=== PATIENT | female | born 1950 | race Caucasian/White ===

== ENCOUNTER 2016-11-14 11:57 | Inpatient (IN) | payer MEDICAID, MEDICARE ==
[~2016-11-14] VITALS: Ht 170.2 cm; Wt 102.4 kg
[2016-11-14] VITALS (7 sets, daily range): BP systolic 97–141; BP diastolic 56–70; PULSE 85–111; RESP 16–20; O2SAT 93–98
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
[2016-11-14 14:04] LABS: BASOPHILS % (AUTO) 0.1 % (0-3); EOSINOPHILS % (AUTO) 2.2 % (0-5); MONOCYTES % (AUTO) 11.2 % (4-12); Mean Corpuscular Hemoglobin 27.4 pg (27.0-35.0); Mean Corpuscular Volume 84.5 fL (81-100); NEUTROPHILS % (AUTO) 59.9 % (40-74); Platelet Count 343 bil/L (150-400)
[2016-11-14 14:31] LABS: TROPONIN T < 0.010 ug/L (0.0-0.011)
--- NOTE | 2016-11-14 14:34 | DRSVH ---
PROCEDURE: CT BRAIN WITHOUT CONTRAST ([id number]) INDICATIONS: syncope vs seizure TECHNIQUE: Noncontrast 4.5 mm thick angled axial sections acquired from the foramen magnum to the vertex, with c oronal reformats. COMPARISON: None. FINDINGS: Image quality: Excellent. CSF spaces: Basal cisterns are patent. No extra-axial fluid collections. The ventricles are symmet zuhair in size and shape. Brain: No intracranial bleeds or masses. There is cerebral volume loss for age, with resultant vent ricular and sulcal prominence. There are periventricular and deep white matter chronic small vessel ischemic changes. There is intracranial internal carotid artery atherosclerosis. Skull and face: Calvarium and visualized facial bones appear intact, without suspicious lesions. Sinuses: Visualized sinuses demonstrate postsurgical changes. IMPRESSION: 1. No acute intracranial process. Dictated by: Teressa Parra M.D. on 11/14/2016 at 14:24 Approved by: Teressa Parra M.D. on 11/14/2016 at 14:32
[2016-11-14 14:37] LABS: Magnesium 1.9 mg/dL (1.6-2.6)
[2016-11-14 15:27] LABS: APPEARANCE,URINE HAZY (CLEAR,HAZY); COLOR,URINE YELLOW (YELLOW); PH,URINE 5.5 (5.0-8.0)
[2016-11-14 15:29] LABS: OCCULT BLOOD,URINE NEGATIVE (NEGATIVE); UROBILINOGEN,URINE NORMAL (NORMAL)
[2016-11-14] MEDS ORDERED: 0.9% Sodium Chloride 1,000 ML IV ONE (16:05)
[2016-11-14] MEDS: Lactated Ringer's 1,000 ML IV SCH (17:24)
[2016-11-14] MEDS ORDERED: TIZA4TAB4 PO (17:26)
[2016-11-14] MEDS ORDERED: BUPR100T15 PO (17:26)
[2016-11-14] MEDS ORDERED: ONDA4TAB12 PO (17:26)
[2016-11-14] MEDS ORDERED: DOXE10CA PO (17:26)
[2016-11-14] MEDS ORDERED: MS15TCR PO (17:26)
[2016-11-14] MEDS ORDERED: HYDR-3605 PO (17:26)
[2016-11-14] MEDS ORDERED: SIMV10TA4 PO (17:26)
[2016-11-14] MEDS ORDERED: HYDR28CR15 TP (17:26)
[2016-11-14] MEDS ORDERED: VENL150C98 PO (17:26)
[2016-11-14] MEDS ORDERED: OXYB10TA PO (17:29)
[2016-11-14] MEDS ORDERED: LIDO15CR9 TP (17:29)
[2016-11-14] MEDS ORDERED: LEVO50TA6 PO (17:29)
[2016-11-14] MEDS ORDERED: CARV3.122 PO (17:29)
[2016-11-14] MEDS ORDERED: NYST15PO5 TP (17:29)
[2016-11-14] MEDS ORDERED: Polyethylene Glycol (PEG) 17 Gm Powder PO PRN (17:30)
[2016-11-14] MEDS ORDERED: Alum-Mag Hydrox-Simeth 30 mL Suspension PO PRN (17:30)
[2016-11-14] MEDS ORDERED: Ondansetron 2 mg/mL 2 mL Inj IVPUSH PRN (17:30)
[2016-11-14] MEDS ORDERED: CHOL200025 PO (17:32)
[2016-11-14] MEDS ORDERED: RANI150T11 PO (17:32)
[2016-11-14] MEDS ORDERED: CYAN10008 PO (17:32)
[2016-11-14] MEDS ORDERED: LISI-571 PO (17:32)
[2016-11-14] MEDS ORDERED: METF500T4 PO (17:32)
[2016-11-14] MEDS ORDERED: KETO120S3 TP (17:32)
[2016-11-14] MEDS ORDERED: ALBU8.5H2 INHALATION (17:33)
[2016-11-14 17:57] LABS: APPEARANCE,URINE CLEAR (CLEAR,HAZY); COLOR,URINE YELLOW (YELLOW); OCCULT BLOOD,URINE NEGATIVE (NEGATIVE); PH,URINE 5.5 (5.0-8.0); UROBILINOGEN,URINE NORMAL (NORMAL)
--- NOTE | 2016-11-14 18:22 | NUR ---
Admit Patient arrived to room 239-1 via wheelchair from ED. GALEN SEPULVEDA; Patient reports back pain 01/14. Patient oriented to room and instructed to press call light for all needs. Med rec completed by admit nurse. Addendum: 11/14/16 at 1927 by RANDY BAZZI RN pt arrived at [id number]
--- NOTE | 2016-11-14 19:20 | DRSVH ---
PROCEDURE: US BILATERAL DUPLEX DOPPLER IMAGING OF THE CAROTIDS ([id number]) INDICATIONS: Recurrent syncopal TECHNIQUE: Color and pulse Doppler interrogation was performed of both carotid systems, with image documentation and velocity measurements. COMPARISON: None. FINDINGS: Stenosis calculations are based on SRU (Society of Radiologists in Ultrasound) criteria. Right side: Brachial blood pressure: 132/56 mm Hg. Common carotid artery peak systolic velocity: 104 cm/sec. Internal carotid artery peak systolic velocity: 151 cm/sec. Internal carotid artery end diastolic velocity: 36 cm/sec. External carotid artery peak systolic velocity: 56 cm/sec. ICA/CCA peak systolic ratio: 1.45. Arteaga scale imaging description: Shadowing atheromatous calcifications are present at the bifurcation. Percent internal carotid artery stenosis: 50-69% stenosis. Vertebral artery: Flow direction is antegrade. Left side: Brachial blood pressure: Not obtained. Common carotid artery peak systolic velocity: 155 cm/sec. Internal carotid artery peak systolic velocity: 123 cm/sec. Internal carotid artery end diastolic velocity: 18 cm/sec. External carotid artery peak systolic velocity: 87 cm/sec. ICA/CCA peak systolic ratio: 0.8. Arteaga scale imaging description: Scattered atheromatous plaque is present at the carotid bifurcation. Percent internal carotid artery stenosis: Less than 50% stenosis. Vertebral artery: Flow direction is antegrade. IMPRESSION: 50-59% stenosis at the right internal carotid artery and less than 50% stenosis of the left internal carotid artery. Dictated by: Gerda Calvin M.D. on 11/14/2016 at 19:17 Approved by: Gerda Calvin M.D. on 11/14/2016 at 19:18
[2016-11-14] MEDS: 0.9% NaCl + KCl 20 mEq/L 1,000 ML IV SCH (19:21)
[2016-11-14] MEDS ORDERED: Albuterol 2.5 mg/3 mL Inhalation Solution NEB PRN (20:00)
[2016-11-14] MEDS: LIDOCAINE 4% CREAM TOPICAL SCH (20:30)
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
--- NOTE | 2016-11-14 22:00 | NUR ---
Hypotension/Drowsy BP @90/54 and patient having trouble staying awake here to assess aware wants to recheck BP and go ahead with cardiac and morphine as elise Addendum: 11/15/16 at 0638 by EDSON SOLOMON RN BP improved still falls asleep sitting up and impulsive and forgetful BA in use
[2016-11-14] MEDS: hydrOXYzine Pamoate 25 mg Capsule PO SCH (22:21)
[2016-11-14] MEDS: Nystatin 100,000 Unit/Gm 15 Gm Powder TOPICAL SCH (22:22)
[2016-11-14] MEDS: Morphine ER 15 mg (MS Contin) Tablet PO SCH (22:22)
[2016-11-15] VITALS (7 sets, daily range): BP systolic 108–154; BP diastolic 59–78; PULSE 81–94; RESP 16–19; O2SAT 93–97
[2016-11-15] MEDS: Lactated Ringer's 1,000 ML IV SCH ×3 (03:24→23:24)
[2016-11-15] MEDS: 0.9% NaCl + KCl 20 mEq/L 1,000 ML IV SCH ×2 (06:31→17:22)
[2016-11-15 07:00] LABS: BASOPHILS % (AUTO) 0.4 % (0-3); MONOCYTES % (AUTO) 11.5 % (4-12); Mean Corpuscular Hemoglobin 26.7 pg (27.0-35.0); Mean Corpuscular Volume 86.1 fL (81-100); NEUTROPHILS % (AUTO) 42.5 % (40-74); Platelet Count 307 bil/L (150-400)
[2016-11-15] MEDS: LIDOCAINE 4% CREAM TOPICAL SCH ×3 (08:30→20:20)
[2016-11-15] MEDS: Insulin Human REGular 300 Unit/3 mL Inj SUBQ SCH ×4 (10:01→22:00)
[2016-11-15] MEDS: Venlafaxine XR 75 mg ER24 Capsule PO SCH (10:04)
[2016-11-15] MEDS: Morphine ER 15 mg (MS Contin) Tablet PO SCH ×2 (10:05→20:16)
[2016-11-15] MEDS: Nystatin 100,000 Unit/Gm 15 Gm Powder TOPICAL SCH ×2 (10:06→20:17)
[2016-11-15] MEDS: hydrOXYzine Pamoate 25 mg Capsule PO SCH ×3 (10:10→20:13)
--- NOTE | 2016-11-15 10:12 | DRSVH ---
PROCEDURE: MRI STROKE PROTOCOL ([id number]) Pre- and post-contrast brain MRI, non-contrast brain MR angiogram, pre- and postcontrast neck MR machelle ogram INDICATIONS: Recurrent syncope TECHNIQUE: Brain: Noncontrast axial T1 spin echo, axial T2 fast spin echo, sagittal and axial FLAIR, coronal T2 fast spin echo, axial gradient echo, axial diffusion and ADC through the brain. After the administr ation of contrast, axial 3D VIBE of the cranial vasculature and brain. Brain MRA: Non-contrast 3-D time of flight MR angiogram, with multiple wdowgby-tbkeqzolk-hssizdvpfg (MIP) reformats performed. Neck MRA: Axial and sagittal TruFISP through the neck. Coronal dynamic MR angiogram during administ ration of contrast in the arterial and venous phases, with 3-dimenstional kisniqs-higdsownp-xcsaxnwgm n (MIP) reformats constructed from subtraction images. COMPARISON: None. FINDINGS: Image quality: Excellent. BRAIN: CSF spaces: Ventricles are normal in size and shape. Basal cisterns are patent. No extra-axial flu id collections. Brain: No intracranial bleeds or mass effects. Arteaga-white matter interface is normal. Diffusion we ighted images show no acute ischemic insults. Brainstem appears normal. Normal intravascular flow v oids are present. No abnormal intracranial enhancement. Skull and face: Calvarial marrow signal is normal. Orbits appear normal. Sinuses: Sinuses and mastoids are clear. BRAIN MR ANGIOGRAM: Anterior circulation: Intracranial internal carotid arteries are overall normal in size and enhancem ent. Focal, moderate grade stenoses are present within the cavernous portions of the bilateral internal sales al carotid arteries. The flow within the paired anterior cerebral arteries is normal and symmetric. The flow within the middle cerebral arteries is normal and symmetric. The anterior communicating art barak is seen. No stenoses, occlusions, or aneurysms. Posterior circulation: The visualized portions of the vertebral arteries demonstrate normal caliber, and join to form a normal appearing basilar artery. The flow within the posterior cerebral arteries is normal and symmetric. No stenoses, occlusions, or aneurysms. NECK MR ANGIOGRAM: Carotids: Great vessels demonstrate a conventional anatomy as they arise from the aortic arch. The origins of the common carotid arteries appear patent. The calibers and courses of both common caroti d arteries are normal. The bifurcation regions appear normal bilaterally. The internal carotid abran charlie demonstrate normal course and caliber. Posterior circulation: The origins of the vertebral arteries appear patent. More superior portions of both vertebral arteries demonstrate normal course and caliber, and join to form a normal appearing basilar artery. Miscellaneous: Subclavian arteries appear patent. Pre-contrast images through the neck show no soft tissue abnormalities. IMPRESSION: BRAIN MRI: 1. No acute intracranial findings. Specifically, no acute or subacute infarct. BRAIN MR ANGIOGRAM: 1. Focal moderate stenosis within the cavernous portions of the bilateral internal carotid arteries. No stenosis, occlusion, or aneurysm. NECK MR ANGIOGRAM: 1. No stenosis, occlusion, or aneurysm. The estimate of stenosis included in the report of the imaging study was calculated using the NASCET method Dictated by: Gerda Calvin M.D. on 11/15/2016 at 9:59 Approved by: Gerda Calvin M.D. on 11/15/2016 at 10:10
--- NOTE | 2016-11-15 11:27 | NUR ---
Social Work: Multidisciplinary Rounds Pt discussed in rounds. PT has been ordered and will hopefully see pt this afternoon. TRACTOR OPERATOR will complete Initial Assessment after PT this afternoon. RN states pt not likely to d/c today. LUIS Marie
--- NOTE | 2016-11-15 12:37 | NUR ---
Case management- DICKSON explained and signed/ timed 1230pm by patient. Copy given to patient. Original placed in chart. Kenyetta LAMAR/ CUBA
--- NOTE | 2016-11-15 16:09 | NUR ---
Social Work: Initial Assessment Attempt / Brief Note Data: Pt is a 66 y/o female admitted for MYAH, syncope. Pt's PCP is Dr Green, pt's insurance is [employer]. EMR reviewed, readmit score not listed. DEPLOYMENT ENGINEER attempted to meet with pt at bedside, pt working with medical staff. PT has not yet seen pt. DEPLOYMENT ENGINEER will continue to follow and see pt on a different day. Assessment: Pt who is independent at baseline. Plan: PT has not yet seen pt. DEPLOYMENT ENGINEER will continue to follow and see pt on a different day. LUIS Marie
--- NOTE | 2016-11-15 18:39 | NUR ---
Kandace had an EEG, MRI, and ECHO today. PT consulted. Front wheeled walker recommended.
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
--- NOTE | 2016-11-15 23:41 | NUR ---
Ambulation Pt ambulating to bathroom SBA with FWW with steady gait. Closely watching due to report from day shift of unsteady gait. Reports of 0/10 pain if resting in bed, pain in low back with movement. Matthew alarm on bed for safety and confusion. Call light within reach. Frequent rounding continues.
[2016-11-16] VITALS (8 sets, daily range): BP systolic 105–129; BP diastolic 66–74; PULSE 72–98; RESP 16–18; O2SAT 94–97
[2016-11-16] MEDS: 0.9% NaCl + KCl 20 mEq/L 1,000 ML IV SCH (02:40)
[2016-11-16 07:03] LABS: BASOPHILS % (AUTO) 0.2 % (0-3); EOSINOPHILS % (AUTO) 3.9 % (0-5); MONOCYTES % (AUTO) 12.6 % (4-12); Mean Corpuscular Hemoglobin 27.1 pg (27.0-35.0); NEUTROPHILS % (AUTO) 31.2 % (40-74); Platelet Count 304 bil/L (150-400)
[2016-11-16] MEDS: Insulin Human REGular 300 Unit/3 mL Inj SUBQ SCH ×4 (07:30→22:02)
[2016-11-16 07:32] LABS: Phosphorus 5.4 mg/dL (2.5-4.9)
--- NOTE | 2016-11-16 08:12 | DRSVH ---
[facility] [address] [place] [address] Echocardiogram Report Name: CAMELIA CANTRELL JStudy Date: 11/15/2016 Height: 6 7 in Hospital Exam Location: [facility] Weight: 2 26 lb Gender: Female BSA: 2.1 m2 : 1950 Age: 66 yrs BP: 119/7 0 mmHg Reason For Study: Syncope Performed By: Gisselle Merrill Referring Physician: CHAVEZ GONZALEZ Interpretation Summary The left ventricle is normal in size. There appears to some degree of outflow obstruction during systolic phase. Howvever, there is no visual systolic anterior motion of anterior mitral leaflet. The LVOT velocity is 2.78 m/s. The left ventricular outflow velocity with valsalva is 3.92 m/s. Increased LVOT velocity was not noted on prior echo study. There could be mid LV cavity obstruction but Doppler measurements were not completed in this area. Consider repeating a limited echo study for a more thorough study of the increased LVOT velocity with additional Doppler measurements along the LV cavity and M-mode of both the aortic and mitral valve. Left ventricular systolic function is normal without focal wall motion abnormalities. The ejection fraction is estimated to be 65-70%. LVEF has not changed. The right ventricle is normal in size and function. The right ventricular systolic pressure is estimated at 29 mmHg assuming a right atrial pressure of 8 mm Hg. The left atrial size is normal. Right atrial size is normal. The aortic valve is slightly calcified. The aortic valve opens well. The aortic root is normal size. Procedure: A two-dimensional transthoracic echocardiogram with color flow and Doppler was performed. The study quality was technically adequate. A contrast injection of Definity was performed to improve assessment of LV function. Comparison is made with the echocardiogram of 01/14/2016. The patient was in normal sinus rhythm during the exam. Left Ventricle: The left ventricle is normal in size. There is normal left ventricular wall thickness. The LVOT velocity is 2.78 m/s. The left ventricular outflow velocity with valsalva is 3.92 m/s.. Left ventricular systolic function is normal without focal wall motion abnormalities. The ejection fraction is estimated to be 65-70%. Right Ventricle: The right ventricle is normal in size and function. Atria: The left atrial size is normal. Right atrial size is normal. The interatrial septum is intact with no evidence for an atrial septal defect. Mitral Valve: The mitral valve leaflets appear mildly thickened, but open well. There is mild mitral annular calcification. There is trace mitral regurgitation. Aortic Valve: The aortic valve is trileaflet. The aortic valve is slightly calcified. The aortic valve opens well. The aortic valve mean gradient is 14 mmHg. There is trace aortic regurgitation. Tricuspid Valve: The tricuspid valve is normal in structure and function. There is trace tricuspid regurgitation. The right ventricular systolic pressure is estimated at 29 mmHg assuming a right atrial pressure of 8 mm Hg. Pulmonic Valve: The pulmonic valve is normal in structure and function. There is trace pulmonic regurgitation. Great Vessels: The aortic root is normal size. The ascending aorta is normal in size. The IVC is dilated (diameter is greater than 2.1 cm) yet it collapses greater than 50% with a sniff. This suggests a right atrial pressure of 8 mm Hg. Pericardium/ Pleura There is no pericardial effusion. There is an anterior echo-free space consistent with a fat pad. There is no pleural effusion. MMode/2D Measurements & Calculations LVIDd: 4.0 cm RA long axis LVOT diam LVIDs: 2.5 cm LA A2 area: 14.8 cm FS: 37.2 % LA A4 area: 16.5 cm RA area asc Aorta IVSd: 1.1 cm LA length (vol): 4.6 cm Diam: 3.1 cm LVPWd: 1.0 cm LA vol: 44.7 ml : 10.4 cm LA vol index RA vol: 22.4 ml RA : 21.0 ml/m2 : 10.5 mm2 LV andrews. diameter/BSA LV sys. diameter/BSA TAPSE: 2.2 cm (cm/m^2): 1.9 (cm/m^2): 1.2 Doppler Measurements & Calculations Ao V2 max MV E max regan MV E/A: 0.83 TR max regan : 247.9 cm/sec : 121.0 cm/sec : 234.1 cm/sec Ao max PG MV A max regan TR max PG : 24.7 mmHg : 145.9 cm/sec : 21.9 mmHg Ao mean PG PA V2 max : 13.8 mmHg : 108.8 cm/sec PA mean PG : 2.8 mmHg MV dec time Ao V2 mean PA V2 mean : 0.17 sec : 174.0 cm/sec : 79.8 cm/sec Ao V2 VTI: 50.2 cm PA pr(Accel) : 33.3 mmHg Reading Physician:SANDRINE
[2016-11-16] MEDS: LIDOCAINE 4% CREAM TOPICAL SCH ×3 (08:30→19:48)
[2016-11-16] MEDS: hydrOXYzine Pamoate 25 mg Capsule PO SCH ×3 (08:38→19:56)
[2016-11-16] MEDS: Morphine ER 15 mg (MS Contin) Tablet PO SCH ×2 (08:39→19:56)
[2016-11-16] MEDS: Venlafaxine XR 75 mg ER24 Capsule PO SCH (08:40)
[2016-11-16] MEDS: Nystatin 100,000 Unit/Gm 15 Gm Powder TOPICAL SCH ×2 (08:41→19:56)
[2016-11-16] MEDS: Lactated Ringer's 1,000 ML IV SCH (09:24)
[2016-11-16] MEDS: 0.9% Sodium Chloride 1,000 ML IV SCH ×2 (10:23→21:28)
--- NOTE | 2016-11-16 11:44 | NUR ---
Case Management: Clarification of patient status: inpatient > 2MN per MD order 11/16/16. Derek Herrera RN
--- NOTE | 2016-11-16 13:37 | DRSVH ---
PROCEDURE: X-RAY PELVIS WITH BILATERAL HIPS, 3 VIEWS INDICATIONS: HIP PAIN, BOTH, AFTER MULTIPLE FALLS TECHNIQUE: AP pelvis with lateral view(s) of the bilateral hip(s). COMPARISON: None. FINDINGS: Bones: No fractures or dislocations. Pelvic ring appears intact. No suspicious bony lesions. Soft tissues: The visualized bowel gas pattern is normal. No suspicious soft tissue calcifications. IMPRESSION: No acute fractures. If there is clinical concern for radiographic occult fracture then a noncontrast MRI or CT would be recommended for further evaluation. . Dictated by: Omega Harris M.D. on 11/16/2016 at 13:30 Approved by: Omega Harris M.D. on 11/16/2016 at 13:35
--- NOTE | 2016-11-16 15:16 | NUR ---
Evaluation completed. Please go to "Notes" then click on "Assessments and Notes" (bottom left corner of screen). Then select appropriate discipline tab on top of screen.
--- NOTE | 2016-11-16 16:27 | NUR ---
Social Work: Multidisciplinary Rounds Pt discussed in rounds, states pt likely to need at least 2 more days of hospitalization. EMR reviewed. PT saw pt, recommending outpt PT. WEATHER FORECASTER will complete initial assessment at a later time. WEATHER FORECASTER will continue to follow. LUIS Marie
--- NOTE | 2016-11-16 17:23 | DRSVH ---
[facility] [address] [place] [address] Echocardiogram Report Name: CAMELIA CANTRELL JStudy Date: 11/16/2016 Height: 6 7 in Hospital Exam Location: [facility] Weight: 2 26 lb Gender: Female BSA: 2.1 m2 : 1950 Age: 66 yrs BP: 109/6 6 mmHg Reason For Study: Syncope Performed By: Gisselle Merrill Referring Physician: CHAVEZ GONZALEZ Interpretation Summary There is no evidence of increased LV outflow velocity at the mid LV cavity. The highest velocity was within the LVOT. Actually today's LVOT peak velocity is decreased in comparison to prior echo study. This could be secondary to IV hydration. Nevertheless, there is no visual evidence by 2-D echocardiogram or by M-mode or Doppler that would explain patient's syncope. Procedure: A two-dimensional transthoracic echocardiogram with color flow and Doppler was performed in limited views only. Echocardiogram focused to assess left ventricular outflow tract obstruction. See previous report for remainder of findings. Comparison is made with the echocardiogram of 11/15/2016. The patient was in normal sinus rhythm during the exam. Left Ventricle: The left ventricle is normal in size. Mitral Valve: The mitral valve leaflets appear mildly thickened, but open well. There is mild mitral annular calcification. There is trace mitral regurgitation. Aortic Valve: The aortic valve is trileaflet. The aortic valve is slightly calcified. The aortic valve opens well. Pericardium/ Pleura There is no pericardial effusion. There is an anterior echo-free space consistent with a fat pad. There is no pleural effusion. Doppler Measurements & Calculations Ao V2 max: 226.9 cm/sec Ao V2 mean: 163.2 cm/sec Ao max P.6 mmHg Ao V2 VTI: 49.3 cm Ao mean P.0 mmHg Reading Physician:SANDRINE
--- NOTE | 2016-11-16 17:25 | NUR ---
Case Management: IMM explained to patient and her son at 1615, all questions answered. Signed original placed in chart, copy given to patient. Sada Zazueta RN
--- NOTE | 2016-11-16 19:22 | NUR ---
Hip pain/tele Pt. reporting that she has hip pain, bilateral. Pain rated 5/10, more so with activity. Pt. on scheduled MS contin. Pt. was able to sleep after admin. These findings were also reported to Dr. Silverman, Pelvic x-ray was ordered. Tele reading SR 60-90s, with no ectopy, per bus driver/monitor. Potassium level reading 5.6 this AM, IV fluids changed to NS at 100/hr. OK to be off tele for shower per Dr. Silverman; pt. showered this afternoon, tolerated activity well. Report given to CUBA Hickman to continue care.
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
[2016-11-17] VITALS (8 sets, daily range): BP systolic 124–141; BP diastolic 73–82; PULSE 76–91; RESP 16–18; O2SAT 93–96
[2016-11-17] MEDS: 0.9% Sodium Chloride 1,000 ML IV SCH ×2 (07:02→15:20)
[2016-11-17 07:05] LABS: BASOPHILS % (AUTO) 0.2 % (0-3); EOSINOPHILS % (AUTO) 3.3 % (0-5); MONOCYTES % (AUTO) 9.6 % (4-12); Mean Corpuscular Hemoglobin 26.8 pg (27.0-35.0); Mean Corpuscular Volume 88.6 fL (81-100); NEUTROPHILS % (AUTO) 42.4 % (40-74); Platelet Count 349 bil/L (150-400)
[2016-11-17] MEDS: Insulin Human REGular 300 Unit/3 mL Inj SUBQ SCH ×4 (07:30→22:00)
[2016-11-17] MEDS: Venlafaxine XR 75 mg ER24 Capsule PO SCH (08:06)
[2016-11-17] MEDS: hydrOXYzine Pamoate 25 mg Capsule PO SCH ×3 (08:06→20:58)
[2016-11-17] MEDS: Morphine ER 15 mg (MS Contin) Tablet PO SCH ×2 (08:08→20:58)
[2016-11-17] MEDS: Nystatin 100,000 Unit/Gm 15 Gm Powder TOPICAL SCH ×2 (08:08→20:59)
[2016-11-17] MEDS: LIDOCAINE 4% CREAM TOPICAL SCH ×3 (08:30→20:30)
[2016-11-17 09:54] LABS: Unsaturated Iron Binding 193.6 ug/dL
--- NOTE | 2016-11-17 11:45 | PROCED ---
[address] [address] EEG PATIENT: CAMELIA CANTRELL : 1950 MR#: [id number] ADMIT: 11/14/2016 JOB ID: [id number] DATE OF SERVICE: 11/15/2016 REQUESTING PHYSICIAN: Ezra Silverman MD. CLINICAL HISTORY: The patient is a 66-year-old female with multiple episodes of syncope. Medication list not reported. EEG was requested due to concern for epilepsy. DESCRIPTION: While awake and with eyes closed, there are 6 hertz rhythmic and symmetric waveforms seen over the occipital head region intermixed with 8 hertz activity. There are no focal, lateralizing, or epileptiform abnormalities seen while awake or during sleep. Sleep is associated with sleep spindles in both hemispheres. Activation: Photic activation does not reveal any photic driving and no photoparoxysmal discharges. Hyperventilation did not reveal any paroxysmal discharges. Rhythm strip shows tachycardic rhythm. IMPRESSION: Abnormal electroencephalogram due to slowing. Otherwise normal electroencephalogram patient awake and asleep. Specifically, no evidence of epileptic focus. Towards the end of the recording the patient does demonstrate a 9 hertz rhythm activity suggesting that the slowing was due to somnolence. Clinical correlation advised. Dr. Silverman advised.
--- NOTE | 2016-11-17 19:19 | NUR ---
Potassium/tele Pt.' potassium level at 6.0 this AM. Kexalate ordered per Dr. Silverman. Pt. has had 6 loose stools this shift. Tele reading SR 60-90s, no ectopy. At 181, pt. reported that she felt "like my heart was skipping beats, doing funny things." Pt. denied CP or pressure. Tele called, and permit technician stated that no ectopy was found. Pt. currently resting in bed, in trendelenber position. Report given to CUBA Christy to continue care.
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
[2016-11-18] MEDS: 0.9% Sodium Chloride 1,000 ML IV SCH ×2 (01:20→11:20)
[2016-11-18 02:07] VITALS: BP 145/78; PULSE 82; RESP 16; O2SAT 95
--- NOTE | 2016-11-18 04:57 | NUR ---
Pain/Activity pt reported 5-6/10 bilateral ankle and back pain state "it's from too much water in my legs." administered scheduled MS Contin and PRN Tylenol which was effective per pt. pt ambulated multiple times to the restroom with FWW and SBA. Denies syncope, dizziness/lightheadedness. gait steady.
[2016-11-18 06:04] VITALS: BP 153/87; PULSE 85; RESP 16; O2SAT 97
[2016-11-18 06:55] VITALS: PULSE 92
[2016-11-18] MEDS: Insulin Human REGular 300 Unit/3 mL Inj SUBQ SCH ×2 (07:30→11:30)
[2016-11-18 08:00] VITALS: BP 160/81; PULSE 89; PULSE 90; RESP 18; O2SAT 94
[2016-11-18] MEDS: LIDOCAINE 4% CREAM TOPICAL SCH ×2 (08:30→14:30)
[2016-11-18] MEDS: hydrOXYzine Pamoate 25 mg Capsule PO SCH ×2 (09:08→15:03)
[2016-11-18] MEDS: Venlafaxine XR 75 mg ER24 Capsule PO SCH (09:08)
[2016-11-18] MEDS: Morphine ER 15 mg (MS Contin) Tablet PO SCH (09:09)
[2016-11-18] MEDS: Nystatin 100,000 Unit/Gm 15 Gm Powder TOPICAL SCH (09:11)
[2016-11-18 11:23] LABS: BASOPHILS % (AUTO) 0.3 % (0-3); EOSINOPHILS % (AUTO) 2.4 % (0-5); MONOCYTES % (AUTO) 6.4 % (4-12); Mean Corpuscular Hemoglobin 27.1 pg (27.0-35.0); Mean Corpuscular Volume 86.6 fL (81-100); NEUTROPHILS % (AUTO) 65.5 % (40-74); Platelet Count 422 bil/L (150-400)
[2016-11-18 11:48] LABS: Magnesium 1.7 mg/dL (1.6-2.6)
[2016-11-18 11:59] VITALS: BP 160/78; PULSE 94; RESP 18; O2SAT 94
--- NOTE | 2016-11-18 12:07 | NUR ---
BP 160/78 MD notified via text, 1205 MD returned call, no new orders at this time.
[2016-11-18] MEDS ORDERED: Magnesium Sulf 2 Gm/50mL Water 2 GM in IV Premix 1 EACH IV ONE (12:30)
--- NOTE | 2016-11-18 12:30 | PCM.DIMED ---
Discharge Instructions Date of Service Nov 18, 2016 Dates of Hospitalization Nov 14, 2016 at 17:11 Discharge Diagnosis Discharge Diagnosis Obstructive Sleep Apnea with multiple falls Diet Discharge Diet: Heart Healthy Activity Discharge Activity: No restrictions (The patient may resume her usual activities gradually as tolerated.) Call your provider Call your provider for: Fever or Chills, Shortness of breath, Bleeding, Chest pain, Vomitting, Excessive diarrhea, Weakness (unilateral) Patient Instructions Follow-up Provider: Richie Green MD Follow-up with PCP in: 1 week (Patient needs referral to a [facility] Tr[facility]ooter and she needs another sleep study as her CPAP is being taken away, but she agrees to wear it now.) Ezra Silverman MD Nov 18, 2016 12:30
[2016-11-18] MEDS ORDERED: DIF100A PO (13:09)
--- NOTE | 2016-11-18 16:09 | NUR ---
Discharge at 1545 Reviewed DC instructions with patient and son. Answered all questions. All belongings taken including home medication that was in the pharmacy. Pt taken out in w/ch to private vehicle to home, son driving. Son lives 1 mile away and plans to help establish a medication list, and make follow-up appts.
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
== END 2016-11-18 15:45 | disposition home or self-care (01) | DRG 312 ==
LOC: SED 11:57 → MOC 17:11 → OBSVTOIN 17:11 → MOC 17:40
PROVIDERS: ADMIT Internal Medicine Infectious Disease; ATTEND Internal Medicine Infectious Disease
PROC: 4A00X4Z Measurement of Central Nervous Electrical Activity, External Approach (ICD-10-PCS; principal; 2016-11-15)
DX: R55 Syncope and collapse (principal); N17.9 Acute kidney failure, unspecified; B37.89 Other sites of candidiasis; I10 Essential (primary) hypertension; G47.33 Obstructive sleep apnea (adult) (pediatric); E87.5 Hyperkalemia; E11.9 Type 2 diabetes mellitus without complications; R29.6 Repeated falls; M50.30 Other cervical disc degeneration, unspecified cervical region; M51.36 Other intervertebral disc degeneration, lumbar region; Z87.891 Personal history of nicotine dependence; Z79.51 Long term (current) use of inhaled steroids; Z79.84 Long term (current) use of oral hypoglycemic drugs